=== PATIENT | female | born 1995 | race Caucasian/White ===

== ENCOUNTER 2016-09-02 20:33 | Emergency (ER) | payer SELFPAY ==
[2016-09-02 22:00] VITALS: BP 119/62
== END 2016-09-02 22:21 | disposition home or self-care (01) ==
LOC: ED 20:33
DX: S61.412A Laceration without foreign body of left hand, initial encounter (principal); S61.411A Laceration without foreign body of right hand, initial encounter; X58.XXXA Exposure to other specified factors, initial encounter; Y93.89 Activity, other specified; Y99.8 Other external cause status; Y92.89 Other specified places as the place of occurrence of the external cause
CPT/HCPCS: 90715

== ENCOUNTER 2018-01-11 19:16 | Emergency (ER) | payer SELFPAY ==
[~2018-01-11] VITALS: Ht 160 cm; Wt 67.6 kg
[2018-01-11 19:25] VITALS: Ht 160 cm; Wt 67.6 kg
[2018-01-11 21:56] VITALS: BP 115/73
== END 2018-01-11 21:56 | disposition home or self-care (01) ==
LOC: ED 19:16
DX: S63.502A Unspecified sprain of left wrist, initial encounter (principal); W01.0XXA Fall on same level from slipping, tripping and stumbling without subsequent striking against object, initial encounter; Y93.89 Activity, other specified; Y92.89 Other specified places as the place of occurrence of the external cause; Y99.8 Other external cause status